=== PATIENT | male | born 1950 | race African-American/Black ===

== ENCOUNTER → 2022-12-17 09:40 | Outpatient (CLI) | payer MEDICARE, SELFPAY ==
--- NOTE | ~2022-12-17 | US_ITS ---
EXAMINATION: US soft tissue groin LT DATE: 12/17/2022 09:55 INDICATION: R10.32 - Left lower quadrant pain . TECHNIQUE: Grayscale and Doppler ultrasound images of the left lower quadrant were obtained. COMPARISON: None. FINDINGS: Superficial areas in the left lower quadrant were interrogated sonographically, revealing n o abnormality. IMPRESSION: No sonographic abnormality in the area of clinical concern. Reviewed, dictated and finalized at location K.
--- NOTE | ~2022-12-17 | XR_ITS ---
EXAMINATION: XR lumbar spine min 4V DATE: 12/17/2022 09:58 INDICATION: Low back pain TECHNIQUE: Anteroposterior, lateral, and bilateral oblique views of the lumbar spine, and cone-down l ateral view of the lumbosacral junction were obtained. COMPARISON: None. FINDINGS: Bone alignment is normal. There is no fracture. The vertebral body heights are maintained. There is mild loss of intervertebral disc space height throughout the lumbar spine. Small degenerativ e osteophytes project from the anterior endplates of multiple vertebral bodies. 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 There is calcified atherosclerosis of the aorta an d many of the other arteries. IMPRESSION: 1. Mild lumbar spondylosis without acute findings. Reviewed, dictated and finalized at location L.
== END ==
PROVIDERS: PCP Family Medicine; Visit Provider Family Medicine
DX: R10.32 Left lower quadrant pain (principal); M47.896 Other spondylosis, lumbar region
CPT/HCPCS: 72110; 76882

== ENCOUNTER 2022-12-24 09:11 | Outpatient (CLI) | payer MEDICARE, SELFPAY ==
[2022-12-24 19:18] LABS: Alanine Aminotransferase 27 U/L (6-50); Alkaline Phosphatase 73 U/L (38-126); Anion Gap 0 mmol/L (8-16); Aspartate Amino Transferase 31 U/L (17-59); Bilirubin,Total 1.2 mg/dL (0.2-1.3); Blood Urea Nitrogen 17 mg/dL (9-20); Calcium 8.3 mg/dL (8.4-10.2); Carbon Dioxide 32 mmol/L (22-30); Chloride 106 mmol/L (98-107); Cholesterol 159 mg/dL (0-200); Estimated Glomerular Filt Rate > 60; Glucose 93 mg/dL (65-110); HDL Direct 42 mg/dL; Potassium 4.5 mmol/L (3.4-5.0); Sodium 138 mmol/L (137-145); Triglycerides 60 mg/dL (<150)
[2022-12-24 19:31] LABS: LDL Cholesterol Direct 91 mg/dL
== END 2022-12-24 09:12 | disposition home or self-care (01) ==
LOC: ANHGOSHLAB 09:13
PROVIDERS: PCP Family Medicine; Visit Provider Family Medicine
DX: E78.5 Hyperlipidemia, unspecified (principal); Z13.228 Encounter for screening for other metabolic disorders
CPT/HCPCS: 36415; 80053; 80061

== ENCOUNTER 2022-12-31 09:12 | Outpatient (RCR) | payer MEDICARE, SELFPAY ==
--- NOTE | 2022-12-31 10:31 | PTOPEVAL1 ---
Assessment and note entered by Jero Mjaor, PT, DPT Evaluation Information Assessment Status Evaluation Diagnosis low back pain Onset chronic Subjective Information Pt reports low back pain that started in 2014. He states he was working out an his personal development educator told him to just keep doing crunches. He states imaging shows arthritis. He reports pain more on the R side. He enjoys biking, golfing, basketball, and being active. Reported Pain Level Pain Score 4: Self Report Assessment PT Clinical Summary Jan presents to therapy today for his initial evaluation with a diagnosis of low back pain. Today he demonstrates good lumbar mobility and excellent LE strength. He does demonstrates mild tenderness to palpation in his carlos a lumbar paraspinals and carlos a quadratus lumborum. Today he was instructed in a home stretching program and reviewed his daily home exercise program that he already completing. It was recommended that he continue his stretching program for a month and to follow up in one month if needed. Plan of Care Interventions Neuro Re-education,Patient/Caregiver Educati, Therapeutic Activities,Therapeutic Exercise PT Services Indicated Yes Treatment Frequency and follow up in one month if needed Duration These treatments will address the objective and functional deficits as defined above. The patient will be advanced safely and appropriately in order for the patient to progress towards his/her prior level of function. Additional exercises will be introduced and as well as a comprehensive home exercise program upon discharge, if needed, ?to ensure carryover of functional gains achieved in the clinic. This treatment plan has been reviewed and agreement upon by the patient.
--- NOTE | 2023-01-20 13:45 | PTOPDC ---
Assessment and note entered by Jero Major, PT, DPT Evaluation Information Assessment Status Discharge - Pt Not Present Diagnosis low back pain Onset chronic Subjective Information Pt called and cancelled his appointment today stating he is doing much better and does not need to return to therapy. Assessment PT Clinical Summary Jan was evaluated on 12/31/22 and completed a HEP on his own. He would like to be discharged at this time d/t doing better. Plan of Care PT Services Indicated No
== END 2023-01-20 15:37 | disposition home or self-care (01) ==
LOC: ANHGOSHPT 09:12
PROVIDERS: PCP Family Medicine; Visit Provider Family Medicine
DX: M54.50 Low back pain, unspecified (principal)
CPT/HCPCS: 97110; 97112; 97161

== ENCOUNTER 2023-01-30 07:20 | Day surgery (SDC) | payer MEDICARE, SELFPAY ==
[2023-01-20 09:46] VITALS: BMI 25.1
--- NOTE | 2023-01-30 07:24 | P.PNAN_ITS ---
Anes - Initial Pre Proc Eval Procedure: Operation Date: 01/30/23 09:00 Proposed Procedures p Colonoscopy - Eliud South MD Date/Time: 01/30/23 07:24 Surgeon: Eliud South MD Pre Op Diagnosis: Other Fecal Abnormalities and Neoplasm Screening Patient Data Age: 73 Gender: M Height: 1.83 m Weight: 84 kg Allergies Allergy/AdvReac Type Severity Reaction Status Date / Time No Known Allergies Allergy Verified 01/30/23 07:46 Home Medications Medication Instructions Recorded Confirmed Type pravastatin 40 mg tablet See Rx Instructions .Route 09/05/22 01/30/23 Rx .COMPLEX #90 tabs tamsulosin 0.4 mg capsule 0.4 mg PO DAILY #90 caps 12/11/22 01/30/23 Rx sodium,potassium,mag sulfates 17.5 See Rx Instructions PO .COMPLEX 12/27/22 01/30/23 Rx gram-3.13 gram-1.6 gram oral soln #354 mL (Suprep Bowel Prep Kit) Patient hx anesthesia problems: none Family hx anesthesia problems: none Results Review: All pre-operative results and documents have been reviewed as part of the pre- operative evaluation. [facility] Past Medical History Medical History (Updated 01/30/23 @ 07:24 by Jan Mehta DO) Hyperlipidemia LDL goal <100 Family History Family History Mother Carcinoma of colon, Onset Age: 78 Patient's mother is Acute myocardial infarction, Onset Age: 79 Sibling Family history of macular degeneration Acute myocardial infarction, Onset Age: 54 Father Patient's father is Acute myocardial infarction, Onset Age: 47 Social History Social History Smoking status: Former smoker Tobacco type: cigarettes Second hand tobacco smoke exposure: No Smoking end date: 09/15/13 Alcohol intake: current Drinks per week: 3 Substance use: never Substance use type: does not use Lack of Transportation: No Lack of Food: Never True Current Housing: I Have Housing Concerned About Future Housing: No Difficulty Paying Gas/Electric Bills: No Difficulty Paying for Meds: No Currently Unemployed: No Difficulty w/ Childcare or Family Care: No Living arrangements: with family Spiritual care concerns: No Anes - Eval Final PreProcedure Day of Procedure 01/30/23 07:24 Patient weight: overweight Heart: regular rate and rhythm Lungs: clear to auscultation Airway: Mallampati scale class II Neurological: alert and oriented Last oral intake: >/= 8 hours ASA classification: II Emergent: no Anesthetic plan: proceed Anesthesia type and monitoring: general GIVS and standard monitoring Results Review: All pre-operative results and documents have been reviewed as part of the pre- operative evaluation. Informed Consent: The patient's anesthetic plan and its attendant risks and benefits were discussed with the patient/family/POA. Questions were solicited and answers provided to the satisfaction of the patient/family/POA.
[2023-01-30 07:47] VITALS: BP 142/107; PULSE 68; RESP 20; TEMP 36.8; O2SAT 100
[2023-01-30] MEDS: LACTATED RINGERS 1,000 ML 150 ML IV CONT (08:20)
--- NOTE | 2023-01-30 08:32 | PM.HPGS ---
History of Present Illness History of Present Illness Consent: Risks, benefits, and alternatives have been discussed and questions answered. Patient agrees to proceed with procedure. Chief complaint: Other Fecal Abnormalities and Neoplasm Screening Narrative: Jan Solomon is a 73 year old male Presents for screening colonoscopy. Patient's current weight appetite and bowel movements are normal. Patient denies abdominal pain. He states occasionally will have bright red blood per rectum he notes this primarily after eating spicy foods. Recent stool for occult blood noted to be positive. For this reason patient referred for colonoscopy. Patient's family history is significant that his mother has had colon cancer. Patient's previous colonoscopy 2012 and 2004 were unremarkable. Review of Systems Review of Systems: Review of systems noncontributory. [facility] Past Medical History Medical History (Updated 01/30/23 @ 08:34 by Eliud South MD) Hyperlipidemia LDL goal <100 Family History Family History Mother Carcinoma of colon, Onset Age: 78 Patient's mother is Acute myocardial infarction, Onset Age: 79 Sibling Family history of macular degeneration Acute myocardial infarction, Onset Age: 54 Father Patient's father is Acute myocardial infarction, Onset Age: 47 Social History Social History Smoking status: Former smoker Tobacco type: cigarettes Second hand tobacco smoke exposure: No Smoking end date: 09/15/13 Alcohol intake: current Drinks per week: 3 Substance use: never Substance use type: does not use Lack of Transportation: No Lack of Food: Never True Current Housing: I Have Housing Concerned About Future Housing: No Difficulty Paying Gas/Electric Bills: No Difficulty Paying for Meds: No Currently Unemployed: No Difficulty w/ Childcare or Family Care: No Living arrangements: with family Spiritual care concerns: No Meds Home Medications and Allergies Home Medications Medication Instructions Recorded Confirmed Type pravastatin 40 mg tablet See Rx Instructions .Route 09/05/22 01/30/23 Rx .COMPLEX #90 tabs tamsulosin 0.4 mg capsule 0.4 mg PO DAILY #90 caps 12/11/22 01/30/23 Rx sodium,potassium,mag sulfates 17.5 See Rx Instructions PO .COMPLEX 12/27/22 01/30/23 Rx gram-3.13 gram-1.6 gram oral soln #354 mL (Suprep Bowel Prep Kit) Allergies Allergy/AdvReac Type Severity Reaction Status Date / Time No Known Allergies Allergy Verified 01/30/23 07:46 Vital Signs Vital Signs - 24 hr 01/30/23 07:47 Temperature 98.2 F Respiratory Rate 20 Blood Pressure 142/107 H Pulse Oximetry 100 Oxygen Delivery Room Air Exam Narrative: Physical exam reveals patient be alert. Vital signs stable. HEENT exam is unremarkable. Patient is anicteric. Lungs are clear to auscultation and percussion. Heart is without murmur or extra sounds. Abdomen bowel sounds are present soft nontender with no organomegaly. Digital external rectal exam is normal. Assessment and Plan Assessment and plan (1) Occult blood in stools: Code(s): R19.5 - Other fecal abnormalities Status: Acute Assessment and Plan: Patient with occult blood in stools. For this reason patient referred for colonoscopy. Patient known to have internal hemorrhoids. Occasional bleeding the past. High-fiber diet advised. This will be evaluated with colonoscopy. (2) Family history of colon cancer in mother: Code(s): Z80.0 - Family history of malignant neoplasm of digestive organs Status: Acute Assessment and Plan: Patient's mother has had colon cancer. For this reason surveillance colonoscopy at 5-7 year intervals has been recommended.
[2023-01-30 09:39] VITALS: BP 116/62; PULSE 60; RESP 18; O2SAT 97
[2023-01-30 09:49] VITALS: BP 118/71; PULSE 64; RESP 18; O2SAT 100
[2023-01-30 09:59] VITALS: BP 125/75; PULSE 53; RESP 18; O2SAT 100
--- NOTE | 2023-01-30 10:42 | SUR.PHASEII ---
Late note, 01/30/23 0950 Pt's monitor reading HR 30 bpm. HR manually counted to be 64 bpm with irregular beat noted. Pt placed on telemetry monitoring and found to be Sinus Rhythm with PACs. Dr. Mehta notified, no further orders at this time. Pt asymptomatic, VSS.
--- NOTE | 2023-01-30 12:55 | WPDANESPN ---
Anes - Prog Note Post-Op Date/Time: 01/30/23 12:55 Cardiovascular status: normal Respiratory status: normal Airway patency: baseline Mental status: baseline Post-Op hydration status: normal Vital Signs: Last Vital Signs Temp 36.8 C 01/30/23 07:47 Pulse 53 L 01/30/23 09:59 Resp 18 01/30/23 09:59 BP 125/75 01/30/23 09:59 Pulse Ox 100 01/30/23 09:59 O2 Del Method Room Air 01/30/23 09:59 Pain Score (VAS): 0 I/O: Intake & Output 01/29/23 01/30/23 01/30/23 23:59 07:59 15:59 Intake Total 850 Balance 850 Post-procedural complaints: none Patient Feedback: Patient satisfied with anesthetic care. Other Findings: Patient vital signs back to baseline. Patient denies nausea and vomiting. Patient's pain under control. Patient OK for discharge.
== END 2023-01-30 10:23 | disposition home or self-care (01) ==
PROVIDERS: PCP Family Medicine; Visit Provider Internal Medicine Gastroenterology
PROC: 0DJD8ZZ Inspection of Lower Intestinal Tract, Via Natural or Artificial Opening Endoscopic (ICD-10-PCS; CPT 45378; principal; 2023-01-30 09:00)
DX: Z80.0 Family history of malignant neoplasm of digestive organs (principal)
CPT/HCPCS: 45378

== ENCOUNTER 2023-08-03 04:34 | Emergency (ER) | payer MEDICARE, SELFPAY ==
[2023-08-03 04:37] VITALS: BP 134/77; PULSE 60; RESP 14; TEMP 36.6; O2SAT 100
[2023-08-03 06:44] LABS: Alanine Aminotransferase 22 U/L (6-50); Alkaline Phosphatase 76 U/L (38-126); Anion Gap 8 mmol/L (8-16); Aspartate Amino Transferase 25 U/L (17-59); Bilirubin,Total 0.7 mg/dL (0.2-1.3); Blood Urea Nitrogen 19 mg/dL (9-20); Calcium 8.5 mg/dL (8.4-10.2); Carbon Dioxide 27 mmol/L (22-30); Chloride 103 mmol/L (98-107); Estimated CRCL calculation 77 ml/min; Estimated Glomerular Filt Rate > 60; Glucose 139 mg/dL (65-110); Lipase 73 U/L (23-300); Potassium 3.9 mmol/L (3.4-5.0); Sodium 138 mmol/L (137-145)
[2023-08-03 06:49] LABS: Hematocrit 42.9 % (42.0-52.0); Hemoglobin 13.9 g/dL (14.0-18.0); Red Blood Count 4.68 M/mm3 (4.6-6.20); White Blood Count 9.8 K/mm3 (4.5-10.0)
[2023-08-03 06:50] LABS: Basophils Percent Auto 0.2 % (0.2-1.2); Eosinophils Percent Auto 0.2 % (0-4.4); Immature Granulocyte Absolute 0.04 K/mm3 (0.00-0.031); Immature Granulocyte Percent A 0.4 % (0-0.5); Lymphocytes Absolute Auto 0.31 K/mm3 (0.9-3.2); Lymphocytes Percent Auto 3.2 % (18.3-44.2); Mean Corpuscular HGB Conc 32.4 g/dl (32-36); Mean Corpuscular Hemoglobin 29.7 pg (26-34); Mean Corpuscular Volume 91.7 fl (80-100); Mean Platelet Volume 9.3 fl (7.4-10.4); Monocytes Absolute Auto 0.7 K/mm3 (0.1-0.6); Monocytes Percent Auto 6.9 % (2.6-8.5); Neutrophils Absolute Auto 8.7 K/mm3 (1.3-6.7); Neutrophils Percent Auto 89.1 % (45.5-73.1); Platelet Count Result 191 k/mm3 (150-375); Red Cell Distribution Width 11.9 % (11.5-14.5)
[2023-08-03 07:06] LABS: Influenza A QL RT-PCR Negative (Negative); Influenza B QL RT-PCR Negative (Negative); RSV RNA, RT-PCR Negative (Negative); SARS-CoV-2 RNA PCR Negative (Negative)
--- NOTE | 2023-08-03 07:55 | ED.ABDPAIN ---
HPI - Abdominal Pain General Chief Complaint: Abdominal Pain Stated Complaint: abd cramping Time Seen by Provider: 08/03/23 07:53 History of Present Illness HPI narrative: Patient is a 73-year-old male who presents to the emergency department this morning complaining of generalized abdominal cramping, nausea, and Nnonbloody diarrhea. Patient admits that he recently returned back from [place] yesterday and symptoms started throughout the night / this morning. Patient denies any chest pain, shortness of breath, vomiting, dysuria, hematuria, constipation, melena, hematochezia, fevers or chills. Patient also denies any headaches, dizziness, lightheadedness, blurry visions, focal weakness, numbness and or tingling. There are no other modifying, alleviating, or precipitating factors at this time. Related Data Allergies Allergy/AdvReac Type Severity Reaction Status Date / Time No Known Allergies Allergy Verified 06/24/23 10:20 Review of Systems Review of Systems: All systems are reviewed and are negative unless stated otherwise in the HPI. PMFSH Past Medical History Medical History Hyperlipidemia LDL goal <100 Family History Family History Mother Carcinoma of colon, Onset Age: 78 Patient's mother is Acute myocardial infarction, Onset Age: 79 Sibling Family history of macular degeneration Acute myocardial infarction, Onset Age: 54 Father Patient's father is Acute myocardial infarction, Onset Age: 47 Social History Social History Smoking status: Former smoker Tobacco type: cigarettes Second hand tobacco smoke exposure: No Smoking end date: 09/15/13 Alcohol intake: current Drinks per week: 3 Substance use: never Substance use type: does not use Lack of Transportation: No Lack of Food: Never True Current Housing: I Have Housing Concerned About Future Housing: No Difficulty Paying Gas/Electric Bills: No Difficulty Paying for Meds: No Currently Unemployed: No Difficulty w/ Childcare or Family Care: No Living arrangements: with family Spiritual care concerns: No Exam Narrative: General: Alert, awake, afebrile, in no acute distress. HEENT: PERRL, no rhinorrhea, no post nasal drip, oropharynx clear. Neck: Trachea midline, no JVD, no lymphadenopathy. Cardiovascular: Regular rate and rhythm, no murmurs, rubs or gallops, no peripheral edema. Respiratory: Clear to auscultation bilaterally, no tachypnea, no wheezing, no rhonchi, no rubs, no respiratory distress. Abdomen: Soft, nontender, nondistended, no rebound, no guarding, no peritoneal signs. Musculoskeletal: No joint swelling or deformity, normal muscle tone. Skin: No rashes or petechia, no signs of infection. Psychiatric: Alert and oriented, normal behavior and judgment for situation. Neurological: Alert and oriented to person, place, and time. Follows all commands. No focal deficits, speech is clear and fluent. Course Vital Signs Vital signs: Vital Signs Temperature 97.8 F 08/03/23 04:37 Pulse Rate 60 08/03/23 04:37 Respiratory Rate 14 08/03/23 04:37 Blood Pressure 134/77 08/03/23 04:37 Pulse Oximetry 100 08/03/23 04:37 Oxygen Delivery Room Air 08/03/23 04:37 Temperature 97.8 F 08/03/23 04:37 Pulse Rate 60 08/03/23 04:37 Respiratory Rate 14 08/03/23 04:37 Blood Pressure 134/77 08/03/23 04:37 Pulse Oximetry 100 08/03/23 04:37 Oxygen Delivery Room Air 08/03/23 04:37 MDM - Abdominal Pain MDM Narrative Medical decision making narrative: The patient was evaluated by myself in the emergency department. History is obtained from patient who is an independent historian and physical exam was performed. External medical records were reviewed at this time. I
[2023-08-03 09:10] VITALS: BP 100/56; PULSE 72; RESP 16; O2SAT 99
== END 2023-08-03 09:10 | disposition home or self-care (01) ==
PROVIDERS: Student in an Organized Health Care Education/Training Program; Emergency Provider Emergency Medicine; PCP Family Medicine
DX: K52.9 Noninfective gastroenteritis and colitis, unspecified (principal); E78.5 Hyperlipidemia, unspecified; Z87.891 Personal history of nicotine dependence; Z20.822 Contact with and (suspected) exposure to COVID-19
CPT/HCPCS: 36415; 80053; 83690; 85025; 87637; 99283

== ENCOUNTER 2023-11-03 13:21 | Emergency (ER) | payer MEDICARE, SELFPAY ==
--- NOTE | ~2023-11-03 | XR_ITS ---
EXAMINATION: XR chest 2V DATE: 11/03/2023 13:51 INDICATION: Heart palpitations TECHNIQUE: Frontal and lateral views of the chest are obtained COMPARISON: 03/05/2008 FINDINGS: The lungs are free of acute opacities. No pleural effusion or pneumothorax. The cardiomedia stinal silhouette is normal. There is mild thoracic spondylosis. IMPRESSION: 1. No acute cardiopulmonary abnormality. Reviewed, dictated and finalized at location B. RNEY LAW CLERK
--- NOTE | 2023-11-03 13:24 | ECG_ITS ---
Measurements Intervals [place] Rate: 80 P: 73 MA: 141 QRS: 52 QRSD: 85 T: 43 QT: 341 QTc: 394 Interpretive Statements BASELINE ARTIFACT SINUS RHYTHM NONSPECIFIC T-WAVE ABNORMALITY POSSIBLE LEFT ATRIAL ENLARGEMENT [-0.1mV P WAVE IN V1/V2] BORDERLINE ECG NO PREVIOUS ECG AVAILABLE FOR COMPARISON Electronically Signed On 11-03-2023 18:33:13 SCREEN AND CYCLONE REPAIRER by Bang Lopez M.D.
[2023-11-03 13:25] VITALS: BP 176/87; PULSE 81; RESP 18; TEMP 36.6; O2SAT 98
[2023-11-03 13:53] LABS: Basophils Percent Auto 0.7 % (0.2-1.2); Eosinophils Absolute Auto 0.1 K/mm3 (0-0.3); Hematocrit 46.8 % (42.0-52.0); Hemoglobin 15.8 g/dL (14.0-18.0); Immature Granulocyte Absolute 0.02 K/mm3 (0.00-0.031); Immature Granulocyte Percent A 0.3 % (0-0.5); Lymphocytes Absolute Auto 1.42 K/mm3 (0.9-3.2); Lymphocytes Percent Auto 24.7 % (18.3-44.2); Mean Corpuscular HGB Conc 33.8 g/dl (32-36); Mean Corpuscular Hemoglobin 29.8 pg (26-34); Mean Corpuscular Volume 88.3 fl (80-100); Mean Platelet Volume 8.9 fl (7.4-10.4); Monocytes Absolute Auto 0.5 K/mm3 (0.1-0.6); Monocytes Percent Auto 8.2 % (2.6-8.5); Neutrophils Absolute Auto 3.7 K/mm3 (1.3-6.7); Neutrophils Percent Auto 65.1 % (45.5-73.1); Platelet Count Result 212 k/mm3 (150-375); Red Cell Distribution Width 11.9 % (11.5-14.5); White Blood Count 5.7 K/mm3 (4.5-10.0)
[2023-11-03 14:04] LABS: Alanine Aminotransferase 25 U/L (6-50); Albumin Level 4.5 g/dL (3.5-5.1); Alkaline Phosphatase 94 U/L (38-126); Anion Gap 8 mmol/L (8-16); Aspartate Amino Transferase 27 U/L (17-59); Bilirubin,Total 1.2 mg/dL (0.2-1.3); Blood Urea Nitrogen 18 mg/dL (9-20); Calcium 9.2 mg/dL (8.4-10.2); Carbon Dioxide 25 mmol/L (22-30); Chloride 105 mmol/L (98-107); Estimated CRCL calculation 77 ml/min; Estimated Glomerular Filt Rate > 60; Glucose 126 mg/dL (65-110); Lipase 78 U/L (23-300); Potassium 3.9 mmol/L (3.4-5.0); Sodium 138 mmol/L (137-145)
[2023-11-03 14:12] LABS: Prothrombin Time 13.5 Seconds (11.1-14.7)
[2023-11-03 14:13] LABS: Partial Thromboplastin Time 24.8 SECONDS (22.3-36.8)
[2023-11-03 14:16] LABS: Troponin I < 0.012 ng/mL (0.000-0.034)
--- NOTE | 2023-11-03 14:59 | ED.GENADULT ---
HPI - General Adult General Chief complaint: Arrhythmia/Palpitations <Calli Jama January, [employer]ER - Last Filed: 11/03/23 15:08> Stated complaint: heart flutter <Calli Jama January, [employer]ER - Last Filed: 11/03/23 15:08> Time Seen by Provider: 11/03/23 14:59 <Calli Jama January, [employer]ER - Last Filed: 11/03/23 15:08> Focused HPI: 0007 Jan Solomon is a 73 y/o male who presents with reports of having heart fluttering for several months off and on. Recently started to get some intermittent left sided chest tightness/ cramping for several months but seems to be getting more concerning. Denies SOB but he states lately he has been feeling more generalized tired/ weakness. No previous cardiac hx - Currently on Pravastatin, Flomax and Vitmains. GENERAL: Well-appearing, well-nourished, and in no acute distress. HEAD: Normocephalic, atraumatic. CHEST: Clear to auscultation. ?No respiratory distress. HEART: Regular rate and rhythm.? NEURO: ?Alert and oriented x3. Patient screened in triage and initial orders placed.? ?Additional care and disposition to be based upon?diagnostic testing and treatment. <Zay Bishop MD - Last Filed: 11/03/23 17:49> History of Present Illness HPI narrative: Focused HPI: Jason Jan Solomon is a 73 y/o male who presents with reports of having heart fluttering for several months off and on. Recently started to get some intermittent left sided chest tightness/ cramping for several months but seems to be getting more concerning. Denies SOB but he states lately he has been feeling more generalized tired/ weakness. No previous cardiac hx - Currently on Pravastatin, Flomax and Vitmains. GENERAL: Well-appearing, well-nourished, and in no acute distress. HEAD: Normocephalic, atraumatic. CHEST: Clear to auscultation. ?No respiratory distress. HEART: Regular rate and rhythm.? NEURO: ?Alert and oriented x3. Patient screened in triage and initial orders placed.? ?Additional care and disposition to be based upon?diagnostic testing and treatment. <Calli Jama January, [employer]ER - Last Filed: 11/03/23 15:08> Patient is a 73-year-old male who presents ER with left-sided chest pain. Intermittent over last couple months. He can feel a fluttering in his left chest and when he bends and twists to the left side he will feel sharp cramp. No exertional chest pain or exertional shortness of breath. No history of cardiac issues. No diaphoresis or dyspnea. Alleviating factors. Only lasts for few seconds. <Zay Bishop MD - Last Filed: 11/03/23 17:49> Related Data Allergies/adverse reactions: Allergies Allergy/AdvReac Type Severity Reaction Status Date / Time No Known Allergies Allergy Verified 11/03/23 13:22 <Calli Baltazar APRN - Last Filed: 11/03/23 15:08> Review of Systems Review of Systems: All systems reviewed & are unremarkable except as noted in HPI and below <Zay Bishop MD - Last Filed: 11/03/23 17:49> Constitutional: Constitutional: Reports no additional constitutional complaints <Zay Bishop MD - Last Filed: 11/03/23 17:49> ENT: Reports system reviewed and no additional complaints, except as documented <Zay Bishop MD - Last Filed: 11/03/23 17:49> Cardiovascular: Cardiovascular: Reports chest pain, Denies rapid heart rate and Denies radiating jaw, neck or arm pain <Zay Bishop MD - Last Filed: 11/03/23 17:49> Respiratory: Respiratory: Reports no additional respiratory complaints <Zay Bishop MD - Last Filed: 11/03/23 17:49> Gastrointestinal: Gastrointestinal: Reports no additional gastrointestinal complaints <Zay Bishop MD - Last Filed: 11/03/23 17:49> Musculoskeletal: Musculoskeletal: Reports no additional musculoskeletal complaints <Zay Bishop MD - Last Filed: 11/03/23 17:49> PMFSH Past Medical History Medical History: Medical History Hyperlipidemia LDL goal <100 <Calli Mckeon
[2023-11-03] MEDS: ASPIRIN 81 MG CHEWABLE TABLET 324 MG PO (15:31)
[2023-11-03 15:32] VITALS: BP 158/84; PULSE 64; RESP 18; O2SAT 97
[2023-11-03 15:48] LABS: NT Pro B Type Natriuretic Pept < 20 pg/mL (19.9-100)
[2023-11-03 16:33] VITALS: PULSE 61; PULSE 92; RESP 18; TEMP 36.6; O2SAT 100
--- NOTE | 2023-11-03 16:36 | ECG_ITS ---
Measurements Intervals [place] Rate: 61 P: 11 TN: 131 QRS: 31 QRSD: 95 T: 29 QT: 385 QTc: 390 Interpretive Statements SINUS RHYTHM COMPARED TO ECG 11/03/2023 13:38:08 NO SIGNIFICANT CHANGES Electronically Signed On 11-04-2023 15:17:42 JUNIOR SOFTWARE ENGINEER by Malathi Barnes M.D.
[2023-11-03 16:59] LABS: Troponin I < 0.012 ng/mL (0.000-0.034)
[2023-11-03 17:30] VITALS: BP 136/91; PULSE 63; RESP 19; TEMP 36.7; O2SAT 100
== END 2023-11-03 17:53 | disposition home or self-care (01) ==
PROVIDERS: Nurse Practitioner Family; Emergency Provider Emergency Medicine; PCP Family Medicine
DX: R07.89 Other chest pain (principal); E78.5 Hyperlipidemia, unspecified; Z87.891 Personal history of nicotine dependence; R94.31 Abnormal electrocardiogram [ECG] [EKG]
CPT/HCPCS: 36415; 71046; 80053; 83690; 83880; 84484; 85025; 85610; 85730; 93005; 99284; A9270

== ENCOUNTER 2023-12-25 10:56 | Outpatient (CLI) | payer MEDICARE, SELFPAY ==
[2023-12-25 20:14] LABS: Cholesterol 170 mg/dL (0-200); HDL Direct 57 mg/dL; Triglycerides 56 mg/dL (<150)
[2023-12-25 20:27] LABS: LDL Cholesterol Direct 94 mg/dL
[2023-12-25 21:01] LABS: Prostate Specific Antigen 0.5 ng/mL (< OR = 4.0)
== END 2023-12-25 10:57 | disposition home or self-care (01) ==
LOC: ANHGOSHLAB 10:57
PROVIDERS: PCP Family Medicine; Visit Provider Family Medicine
DX: E78.5 Hyperlipidemia, unspecified (principal); Z13.220 Encounter for screening for lipoid disorders; Z12.5 Encounter for screening for malignant neoplasm of prostate
CPT/HCPCS: 36415; 80061; 84153; G0103

== ENCOUNTER 2024-08-20 10:03 | Emergency (ER) | payer MEDICARE, SELFPAY ==
--- NOTE | 2024-08-20 10:09 | ED_ITS ---
HPI - URI/Sore Throat General Chief Complaint: Upper Respiratory Infection Stated Complaint: Cough Time Seen by Provider: 08/20/24 10:09 Source: patient Mode of arrival: ambulatory Limitations: no limitations History of Present Illness HPI Narrative: Mr. Solomon is a 74-year-old male patient presenting to the clinic today with complaints of a cough and sinus congestion x1 month. He reports no known fever or chills. Is blowing out some yellow phlegm when he does blow his nose and coughs up some yellow phlegm. He denies any chest pain or shortness of breath. MD elicited complaint: cough, nasal congestion and sinus pain Related Data Home Medications Medication Instructions Recorded Confirmed tamsulosin 0.4 mg capsule 0.4 mg PO DAILY 08/20/24 08/20/24 Allergies Allergy/AdvReac Type Severity Reaction Status Date / Time No Known Allergies Allergy Verified 08/20/24 10:24 Review of Systems Review of Systems: Pertinent positives per HPI. Patient denies any fever, chills, rash, headache, visual changes, dizziness, shortness of breath, chest pain, palpitations, nausea, vomiting, diarrhea, constipation, abdominal pain, or any urinary issues. [facility] Past Medical History Medical History Hyperlipidemia LDL goal <100 Family History Family History Mother Carcinoma of colon, Onset Age: 78 Patient's mother is Acute myocardial infarction, Onset Age: 79 Sibling Family history of macular degeneration Acute myocardial infarction, Onset Age: 54 Father Patient's father is Acute myocardial infarction, Onset Age: 47 Social History Social History Smoking status: Former smoker Tobacco type: cigarettes Second hand tobacco smoke exposure: No Smoking end date: 09/15/13 Alcohol intake: current Drinks per week: 3 Substance use: never Substance use type: does not use Lack of Transportation: No Lack of Food: Never True Current Housing: I Have Housing Concerned About Future Housing: No Difficulty Paying Gas/Electric Bills: No Difficulty Paying for Meds: No Currently Unemployed: No Difficulty w/ Childcare or Family Care: No Living arrangements: with family Spiritual care concerns: No Comments At the time of my signature, I reviewed and agree with the nursing past medical, surgical, social, and family history. There is no relevant family history pertinent to the patient complaint. Exam Narrative: General: Well-developed, well nourished, in no apparent distress Head: Normocephalic, atraumatic Eyes: Pupils equally round and reactive to light bilaterally, EOM intact, sclera and conjunctive clear, no discharge, lids normal Ears: TMs intact and clear, ear canals clear, no drainage, grossly hearing normal. Nose: Nares patent, yellow nasal discharge, moderate inflammation, maxillary sinus tenderness. Mouth: Oral pharynx without lesions or masses, good dentition, MMM. Neck: Supple, trachea midline, no enlargement of anterior or posterior cervical nodes, no thyroid masses or goiter palpable. Cardio: Regular rate and rhythm, s1 and s2 normal, no murmur appreciated. Resp: Clear to auscultation bilaterally, no rhonchi, rales, wheezing or rubs Course Course Emergency Course: Portions of this record may have been created with voice recognition software. Level of Care: Express Care Visit Vital Signs Vital signs: Vital signs reviewed MDM - URI/Sore Throat MDM Narrative Medical decision making narrative: At the time of visit patient is resting comfortably on the exam table. Patient appears to be nontoxic. Plan: I suspect patient has acute bacterial rhinosinusitis. Prescription for Augmentin and prednisone was sent to the pharmacy. Supportive measures were dis cussed with the patient and they voiced understanding discharge instructions and agrees to treatment plan. Return precautions reviewed Differential Diagnosis Differential diagnosis: Likely upper respiratory infection, otitis media, sinusitis, viral infection, bronchitis, influenza, pharyngitis and other (COVID) Discharge Plan Discharge Clinical Impression: Acute bacterial rhinosinusitis Patient Disposition: Home, Self-Care Condition: Stable Instructions: Antibiotic Form, Sinusitis (ED) Additional Instructions: Take prescription medications only as prescribed-prednisone and Augmentin Increase fluids and stay well hydrated Tylenol/motrin for pain/fever Flonase and OTC antihistamines as directed Vicks vapor rub to open sinuses Sinus rinses for congestion Cepacol spray, cough drops, throat lozenges, warm tea with honey/lemon, gargle salt water to soothe throat BRAT diet for diarrhea Clear liquids x 24 hours then advance as tolerated for nausea/vomiting Go to the ED if you develop a worsening in your condition- high fever not controlled by Tylenol or Motrin, dehydration, weakness, lethargy, shortness of breath, or chest pain. Follow up with your PCP in 3-5 days if symptoms persist. Prescriptions: New amoxicillin-pot clavulanate 875-125 mg tablet 1 tablet PO Q12H 10 Days Qty: 20 0RF prednisone 20 mg tablet 40 mg PO DAILY 5 Days Qty: 10 0RF No Action tamsulosin 0.4 mg capsule 0.4 mg PO DAILY pravastatin 40 mg tablet See Rx Instructions .ROUTE .COMPLEX Qty: 100 1RF Dose Instruction: TAKE 1 TABLET BY MOUTH DAILY Rx Instructions: TAKE 1 TABLET BY MOUTH DAILY Follow-up/Referrals: Chandana Corey DO [Primary Care Provider] - Time of Disposition: 10:48 Quality NIHSS Nursing Documentation ED NIHSS nursing documentation: reviewed/agree
[2024-08-20 10:22] VITALS: BP 114/80; PULSE 64; RESP 16; TEMP 35.9; O2SAT 100
== END 2024-08-20 10:53 | disposition home or self-care (01) ==
PROVIDERS: Emergency Provider Nurse Practitioner Family; PCP Family Medicine
DX: J01.90 Acute sinusitis, unspecified (principal); Z87.891 Personal history of nicotine dependence; E78.5 Hyperlipidemia, unspecified
CPT/HCPCS: 99213; G0463

== ENCOUNTER 2024-12-30 13:39 | Outpatient (CLI) | payer MEDICARE, SELFPAY ==
--- OUTSIDE RECORDS SUMMARY | 2024-12-30 13:52 | XMS_ITS | Clinical Summary ---
Author Organization [facility] Address [address] [place] [id number] Care Team Providers Care Content Strategist Name Role Phone Unavailable Primary Care Provider Unavailabl e Social History Tobacco Use Types Packs/Day Years Used Date Smoking Tobacco: Never Assessed Sex and Gender Information Value Date Recorded Sex Assigned at Not on file Legal Sex Male 7:28 PM CDT Gender Identity Not on file Sexual Orientation Not on file Plan of Treatment Health Maintenance Due Date Last Done Comments Colorectal Cancer Screening Colonoscopy (10 Years) 1950 Hepatitis C 1968 DTaP, Tdap and Td Vaccines ( 1 - Tdap) 01/27/1968 Zoster Vaccines (1 of 2) 1999 Pneumococcal Vaccine: 50+ Ye ars (1 of 1 - PCV) 2014 RSV Immunization or 60+ Years (1 - 1-dose 75+ series) 01/27/2024 COVID-19 Vaccine ( - 2023-2 5 season) 2024 Meningococcal B Vaccine Aged Out No l onger eligible based on patient's age to complete this topic Meningococcal Vaccine Aged Out No celeste suzie eligible based on patient's age to complete this topic RSV Immunizations Under 20 Months Aged Out No longer eligible based on patient's age to complete this topic
[2024-12-30 19:22] LABS: Hematocrit 43.5 % (42.0-52.0); Hemoglobin 13.8 g/dL (14.0-18.0); Mean Corpuscular HGB Conc 31.7 g/dl (32-36); Mean Corpuscular Hemoglobin 29.7 pg (26-34); Mean Corpuscular Volume 93.8 fl (80-100); Platelet Count Result 206 k/mm3 (150-375); Red Blood Count 4.64 M/mm3 (4.6-6.20); Red Cell Distribution Width 12.2 % (11.5-14.5); White Blood Count 6.1 K/mm3 (4.5-10.0)
[2024-12-30 19:49] LABS: Alanine Aminotransferase 23 U/L (6-50); Albumin Level 3.8 g/dL (3.5-5.1); Alkaline Phosphatase 68 U/L (38-126); Anion Gap 3 mmol/L (4-12); Aspartate Amino Transferase 37 U/L (17-59); Bilirubin,Total 0.8 mg/dL (0.2-1.3); Blood Urea Nitrogen 19 mg/dL (9-20); Calcium 8.8 mg/dL (8.4-10.2); Carbon Dioxide 32 mmol/L (22-30); Chloride 106 mmol/L (98-107); Cholesterol 167 mg/dL (0-200); Estimated Glomerular Filt Rate > 60; Glucose 40 mg/dL (65-110); HDL Direct 54 mg/dL; Potassium 4.5 mmol/L (3.4-5.0); Sodium 141 mmol/L (137-145); Triglycerides 79 mg/dL (<150)
[2024-12-30 19:52] LABS: LDL Cholesterol Direct 79 mg/dL
[2024-12-30 20:42] LABS: Hemoglobin A1C 5.7 % (<5.7)
== END 2024-12-30 13:40 | disposition home or self-care (01) ==
LOC: ANHGOSHLAB 13:39
PROVIDERS: PCP Family Medicine; Visit Provider Family Medicine
DX: E78.5 Hyperlipidemia, unspecified (principal); I95.1 Orthostatic hypotension; R73.09 Other abnormal glucose; Z79.899 Other long term (current) drug therapy
CPT/HCPCS: 36415; 80053; 80061; 83036; 84443; 85027

== ENCOUNTER 2025-06-13 08:17 | Outpatient (CLI) | payer MEDICARE, SELFPAY ==
[2025-06-13 12:57] LABS: Hematocrit 42.3 % (42.0-52.0); Hemoglobin 13.8 g/dL (14.0-18.0); Mean Corpuscular HGB Conc 32.6 g/dl (32-36); Mean Corpuscular Hemoglobin 30.1 pg (26-34); Mean Corpuscular Volume 92.2 fl (80-100); Platelet Count Result 192 k/mm3 (150-375); Red Blood Count 4.59 M/mm3 (4.6-6.20); White Blood Count 5.4 K/mm3 (4.5-10.0)
[2025-06-13 13:11] LABS: Alanine Aminotransferase 23 U/L (6-50); Albumin Level 3.8 g/dL (3.5-5.1); Alkaline Phosphatase 66 U/L (38-126); Anion Gap 5 mmol/L (4-12); Aspartate Amino Transferase 32 U/L (17-59); Bilirubin,Total 1.0 mg/dL (0.2-1.3); Blood Urea Nitrogen 22 mg/dL (9-20); Calcium 8.5 mg/dL (8.4-10.2); Carbon Dioxide 29 mmol/L (22-30); Chloride 105 mmol/L (98-107); Cholesterol 175 mg/dL (0-200); Estimated Glomerular Filt Rate > 60; Glucose 81 mg/dL (65-110); HDL Direct 58 mg/dL; Potassium 4.0 mmol/L (3.4-5.0); Sodium 139 mmol/L (137-145); Total Protein 6.6 g/dL (6.3-8.2); Triglycerides 39 mg/dL (<150)
[2025-06-13 13:46] LABS: Hemoglobin A1C 5.6 % (<5.7)
[2025-06-13 13:48] LABS: Prostate Specific Antigen 0.6 ng/mL (< OR = 4.0); Thyroid Stimulating Hormone 0.289 uIU/mL (0.465-4.680)
== END 2025-06-13 08:18 | disposition home or self-care (01) ==
LOC: ANHGOSHLAB 08:18
PROVIDERS: PCP Family Medicine; Visit Provider Family Medicine
DX: E78.5 Hyperlipidemia, unspecified (principal); R73.09 Other abnormal glucose; Z12.5 Encounter for screening for malignant neoplasm of prostate; Z79.899 Other long term (current) drug therapy
CPT/HCPCS: 36415; 80053; 80061; 83036; 84153; 84443; 85027; G0103

== ENCOUNTER 2025-06-14 08:13 | Outpatient (CLI) | payer MEDICARE, SELFPAY ==
--- NOTE | ~2025-06-14 | NM_ITS ---
EXAMINATION: NM stress w perf spect multi DATE: 06/14/2025 10:22 INDICATION: Shortness of breath. TECHNIQUE: Rest images were obtained following intravenous administration of 11.2 mCi Tc99m tetrofosmin (Myoview). The patient performed an exercise activity. At peak exercise, 34.5 mCi Tc99m tetrofosmin (Myoview) was administered intravenously, and stress images were obtained. Data was reconstructed into short axis and horizontal and vertical long axis SPECT images. Gated SPECT images were also obtained. COMPARISON: None. FINDINGS: There is no definite reversible or fixed perfusion abnormality to suggest ischemia or infarction. There is no segmental wall motion abnormality. Left ventricular ejection fraction measures 62%. IMPRESSION: 1. No definite ischemia or infarct. 2. Normal left ventricular ejection fraction measuring 62%. Reviewed, dictated and finalized at location E.
--- NOTE | 2025-06-14 08:20 | EST_ITS ---
Patient Info Name: Jan Solomon Age: 75 years : 1950 Gender: Male Ht: 72 in Wt: 175 lbs BSA: 2.01 m2 HR: 54 bpm BP: 134 / 98 mmHg Exam Date: 06/14/2025 8:20 AM Patient Status: O Admit Date: 06/14/2025 Exam Type: CA stress test treadmill w NM A nuclear stress test was performed. Staff Referring Physician: Leilani Luong Attending Provider: Leilani Luong Exercise Technologist: Peggy Dumont Exercise Physician: Nikolas Soto DO Summary 1. 1. Negative Alan exercise stress test for ischemic ST changes by ECG criteria. 2. 2. Good functional capacity, achieving 10 METs of workload. 3. 3. Appropriate HR response to exercise. 4. 4. Appropriate HR recovery at 1 minute post exercise. 5. 5. Nuclear scan to follow and will be reported separately. Please correlate with it. 6. 6. Patient informed of the above results. Protocol: Alan Stress ECG Details Stage: REST Duration (min): 0 min : 53 sec Speed (mph): 0.0 Grade (%): 0 HR (bpm): 54 SBP (mmHg): 134 DBP (mmHg): 98 METS: --- Stage: REST Duration (min): 4 min : 50 sec Speed (mph): 0.0 Grade (%): 0 HR (bpm): 65 SBP (mmHg): 134 DBP (mmHg): 98 METS: --- Stage: STAGE 1 Duration (min): 1 min : 0 sec Speed (mph): 1.7 Grade (%): 10 HR (bpm): 87 SBP (mmHg): 134 DBP (mmHg): 98 METS: --- Stage: STAGE 1 Duration (min): 2 min : 0 sec Speed (mph): 1.7 Grade (%): 10 HR (bpm): 90 SBP (mmHg): 134 DBP (mmHg): 98 METS: --- Stage: STAGE 1 Duration (min): 3 min : 0 sec Speed (mph): 1.7 Grade (%): 10 HR (bpm): 94 SBP (mmHg): 135 DBP (mmHg): 68 METS: --- Stage: STAGE 2 Duration (min): 1 min : 0 sec Speed (mph): 2.5 Grade (%): 12 HR (bpm): 100 SBP (mmHg): 135 DBP (mmHg): 68 METS: --- Stage: STAGE 2 Duration (min): 2 min : 0 sec Speed (mph): 2.5 Grade (%): 12 HR (bpm): 108 SBP (mmHg): 143 DBP (mmHg): 71 METS: --- Stage: STAGE 2 Duration (min): 3 min : 0 sec Speed (mph): 2.5 Grade (%): 12 HR (bpm): 108 SBP (mmHg): 143 DBP (mmHg): 71 METS: --- Stage: STAGE 3 Duration (min): 1 min : 0 sec Speed (mph): 3.4 Grade (%): 14 HR (bpm): 123 SBP (mmHg): 154 DBP (mmHg): 72 METS: --- Stage: STAGE 3 Duration (min): 1 min : 52 sec Speed (mph): 3.4 Grade (%): 14 HR (bpm): 129 SBP (mmHg): 154 DBP (mmHg): 72 METS: --- Stage: RECOVERY Duration (min): 0 min : 7 sec Speed (mph): 1.5 Grade (%): 0 HR (bpm): 129 SBP (mmHg): 154 DBP (mmHg): 72 METS: --- Stage: RECOVERY Duration (min): 1 min : 7 sec Speed (mph): 0.0 Grade (%): 0 HR (bpm): 96 SBP (mmHg): 154 DBP (mmHg): 72 METS: --- Stage: RECOVERY Duration (min): 2 min : 7 sec Speed (mph): 0.0 Grade (%): 0 HR (bpm): 83 SBP (mmHg): 154 DBP (mmHg): 72 METS: --- Stage: RECOVERY Duration (min): 3 min : 7 sec Speed (mph): 0.0 Grade (%): 0 HR (bpm): 71 SBP (mmHg): 139 DBP (mmHg): 76 METS: --- Stage: RECOVERY Duration (min): 3 min : 17 sec Speed (mph): 0.0 Grade (%): 0 HR (bpm): 76 SBP (mmHg): 139 DBP (mmHg): 76 METS: --- Rest HR: 65 bpm Peak HR: 129 bpm Rest Sys BP: 134 mmHg Peak Sys BP: 154 mmHg Max Pred HR: 144 bpm % Max Pred HR: 90 % Target HR: 122 bpm Max RPP: 19,866 bpm*mmHg Recinos Score: 0 Termination Reason: Reached target heart rate or workload Cardiac Symptoms: Shortness of breath Max ST Seg Deviation: 1.50 mm Total Time: 7 min : 52 sec Rest Bonds BP: 98 mmHg Peak Bonds BP: 72 mmHg Angina Score: None Total METS: 10.3 Resting ECG Sinus rhythm. Stress ECG No ST changes. Arrhythmias None. Report Signatures
--- OUTSIDE RECORDS SUMMARY | 2025-06-14 08:26 | XMS_ITS | Patient Health Record ---
Author Organization [facility] Address [address] [place], [place] [id number] Support Name Relationship Address Phone Jan Solomon Guarantor Unknown [phone] Reason For Referral No Information Immunizations Vaccine Route Administration Date Status Comme nts Pfizer 2nd Dose IM Intramuscular 11/03/2020 Administered Plan Of Treatment No Information Insurance Providers Payer Name Payer Address Payer Phone Subscriber Number Group Number Insured Name Patient Relationship to Insured Coverage Start Date Coverage End Date [employer] of [place] [address] [address] [place], [place] [id number] Jan Solomon Self - patient is the insured
== END 2025-06-14 08:14 | disposition home or self-care (01) ==
PROVIDERS: PCP Family Medicine; Visit Provider Family Medicine
DX: T73.3XXA Exhaustion due to excessive exertion, initial encounter (principal); X58.XXXA Exposure to other specified factors, initial encounter; E03.9 Hypothyroidism, unspecified
CPT/HCPCS: 36415; 78452; 84439; 93017; A9502

== ENCOUNTER 2025-06-14 15:04 | Outpatient (CLI) | payer MEDICARE, SELFPAY ==
--- OUTSIDE RECORDS SUMMARY | 2025-06-14 15:09 | XMS_ITS | Clinical Summary ---
Author Organization [facility] Address [address] [place] [id number] Care Team Providers Care Economic Analysis Director Name Role Phone Unavailable Primary Care Provider Unavailabl e Social History Tobacco Use Types Packs/Day Years Used Date Smoking Tobacco: Never Assessed Sex and Gender Information Value Date Recorded Sex Assigned at Not on file Legal Sex Male 7:28 PM CDT Gender Identity Not on file Sexual Orientation Not on file Plan of Treatment Health Maintenance Due Date Last Done Comments Hepatitis C 1968 DTaP, Tdap and Td Vaccines ( 1 - Tdap) 01/27/1968 Pneumococcal Vaccine: 50+ Ye ars (1 of 1 - PCV) 1999 Zoster Vaccines (1 of 2) 1999 RSV Immunization or 60+ Years (1 - 1-dose 75+ series) 01/27/2024 COVID-19 Vaccine ( - 2023-2 5 season) 2025 Meningococcal B Vaccine Aged Out No l onger eligible based on patient's age to complete this topic Meningococcal Vaccine Aged Out No celeste suzie eligible based on patient's age to complete this topic RSV Immunizations Under 20 Months Aged Out No longer eligible based on patient's age to complete this topic
[2025-06-14 20:03] LABS: Free T4 Free Thyroxine 1.24 ng/dL (0.78-2.19)
== END 2025-06-14 15:05 | disposition home or self-care (01) ==
LOC: ANHGOSHLAB 15:05
PROVIDERS: PCP Family Medicine; Visit Provider Family Medicine
DX: E03.9 Hypothyroidism, unspecified (principal)
CPT/HCPCS: 36415; 84439

== ENCOUNTER 2025-06-23 08:14 | Outpatient (CLI) | payer MEDICARE, SELFPAY ==
--- NOTE | 2025-06-23 12:35 | WPDSIXMINUTE ---
Six Minute Walk Procedure Procedure Performed Pulmonary Stress Test (6 min walk) Six Minute Walk Six Minute Walk: This is a 6 minute walk test. The test was performed and interpreted in accordance with the 2014 ERS/ATS task force guidelines. Findings: The patient's resting room air oxygen saturation measured by pulse oximetry was 97%, the heart rate was 56 bpm, and the modified Efren dyspnea score was 0. Patient ambulated for 488 meters and oxygen saturation remained 96 to 98%. At the end of the study the heart rate was 90 bpm and the modified Efren dyspnea score was 0. The patient did not qualify for supplemental oxygen at rest or with ambulation. There are no prior studies for comparison.
== END 2025-06-23 08:15 | disposition home or self-care (01) ==
PROVIDERS: PCP Family Medicine; Visit Provider Family Medicine
DX: R06.02 Shortness of breath (principal)
CPT/HCPCS: 94618

== ENCOUNTER 2025-07-12 09:27 | Outpatient (CLI) | payer MEDICARE, SELFPAY ==
--- OUTSIDE RECORDS SUMMARY | 2025-07-12 10:22 | XMS_ITS | Clinical Summary ---
Author Organization [facility] Address [address] [place] [id number] Care Team Providers Care Addiction Professional Name Role Phone Unavailable Primary Care Provider [...] 75+ series) 01/27/2024 COVID-19 Vaccine ( - 2024-2 6 season) 2025 Influenza Adult (#1) 2025 Hepatitis A Vaccines Aged Out No long er eligible based on patient's age to complete this topic Meningococcal B Vaccine Aged Out No l onger eligible based on patient's age to complete this topic Meningococcal Vaccine Aged Out No celeste suzie eligible based on patient's age to complete this topic RSV Immunizations Under 20 Months Aged Out No longer eligible based on patient's age to complete this topic
[2025-07-12 13:20] LABS: Free T4 Free Thyroxine 1.18 ng/dL (0.78-2.19)
[2025-07-12 13:34] LABS: Thyroid Stimulating Hormone Reflex 0.742 uIU/mL (0.465-4.68)
== END 2025-07-12 09:28 | disposition home or self-care (01) ==
PROVIDERS: PCP Family Medicine; Visit Provider Family Medicine
DX: E03.9 Hypothyroidism, unspecified (principal); R79.89 Other specified abnormal findings of blood chemistry
CPT/HCPCS: 36415; 84439; 84443